=== PATIENT | female | born 1970 | race African-American/Black ===

== ENCOUNTER 2016-11-28 14:10 | Emergency (ER) | payer MEDICAID ==
[~2016-11-28] VITALS: Ht 167.6 cm; Wt 129.0 kg
[2016-11-28 18:39] VITALS: BP 110/78
[2016-11-28 18:48] LABS: CLARITY URINE TURBID (CLEAR); COLOR URINE DARK YELLOW (YELLOW); GLUCOSE URINE NEGATIVE (NEGATIVE); KETONES URINE NEGATIVE (NEGATIVE); LEUKOCYTE ESTERASE URINE 3+ (NEGATIVE); NITRITE URINE POSITIVE (NEGATIVE); OCCULT BLOOD URINE 2+ (NEGATIVE); PH URINE 5.5 (4.5-8.0); PROTEIN URINE 1+ (NEGATIVE); SPECIFIC GRAVITY URINE 1.018 (1.005-1.030)
== END 2016-11-28 19:17 | disposition home or self-care (01) ==
LOC: ER 15:04
DX: N39.0 Urinary tract infection, site not specified (principal); F41.9 Anxiety disorder, unspecified; J45.909 Unspecified asthma, uncomplicated; F17.200 Nicotine dependence, unspecified, uncomplicated; Z88.8 Allergy status to other drugs, medicaments and biological substances; Z88.1 Allergy status to other antibiotic agents
CPT/HCPCS: 81001; 99283

== ENCOUNTER 2017-01-08 16:00 | Emergency (ER) | payer MEDICAID ==
[~2017-01-08] VITALS: Ht 167.6 cm; Wt 100.0 kg
[2017-01-08 16:10] VITALS: BP 132/81
== END 2017-01-08 17:40 | disposition home or self-care (01) ==
LOC: ER 16:39
DX: L02.214 Cutaneous abscess of groin (principal); J45.909 Unspecified asthma, uncomplicated; Z88.6 Allergy status to analgesic agent; Z88.1 Allergy status to other antibiotic agents
CPT/HCPCS: 99283

== ENCOUNTER 2017-01-23 14:47 | Emergency (ER) | payer MEDICAID ==
[~2017-01-23] VITALS: Ht 167.6 cm; Wt 100.0 kg
[2017-01-23] MEDS ORDERED: ONDANSETRON HCL 4MG/2ML VIAL IV STA (18:25)
[2017-01-23] MEDS ORDERED: SODIUM CHLORIDE 0.9% 1,000 ML IV ONE (18:25)
[2017-01-23] MEDS ORDERED: MORPHINE SULFATE 4 MG/ML CPJ (NOT FOR IM USE) IV ONE (18:30)
[2017-01-23 18:53] LABS: BASOPHILS % 1.5 % (0.0-2.0); EOSINOPHILS % 0.1 % (0.0-5.0); HEMATOCRIT. 38.1 % (36.0-48.0); HEMOGLOBIN. 12.8 g/dL (12.0-16.0); LYMPHOCYTES % 16.1 % (20.0-50.0); MEAN CORPUSCULAR HEMOGLOBIN 30.3 pg (28.0-32.0); MEAN PLATELET VOLUME 7.5 fl (7.4-10.4); MONOCYTES % 4.5 % (2.0-8.0); NEUTROPHILS % 77.8 % (40.0-76.0); PLATELET 330 x1000/uL (130-400); RED BLOOD CELL COUNT 4.24 mill/uL (4.2-5.4); RED CELL DISTRIBUTION WIDTH 14.3 % (11.6-14.6)
[2017-01-23 18:55] LABS: CHLORIDE 106 mEq/L (98-107)
[2017-01-23 18:57] LABS: INR 1.1; PROTHROMBIN TIME 10.9 sec
[2017-01-23 19:00] LABS: CARBON DIOXIDE 29 mEq/L (21-32)
[2017-01-23 19:07] LABS: HCG SCREEN NEGATIVE
[2017-01-23 20:13] LABS: CLARITY URINE CLEAR (CLEAR); COLOR URINE YELLOW (YELLOW); GLUCOSE URINE NEGATIVE (NEGATIVE); KETONES URINE TRACE (NEGATIVE); LEUKOCYTE ESTERASE URINE 1+ (NEGATIVE); NITRITE URINE NEGATIVE (NEGATIVE); OCCULT BLOOD URINE 1+ (NEGATIVE); PROTEIN URINE NEGATIVE (NEGATIVE); SPECIFIC GRAVITY URINE 1.019 (1.005-1.030); UROBILINOGEN URINE 0.2 E.U./dL (0.2-1.0)
[2017-01-23] MEDS ORDERED: KETOROLAC 30MG/ML VIAL IV ONE (20:45)
[2017-01-24] MEDS ORDERED: MORPHINE SULFATE 10 MG/ML CPJ IM ONE (01:30)
[2017-01-24 02:02] VITALS: BP 119/57
== END 2017-01-24 02:30 | disposition home or self-care (01) ==
LOC: ER 18:28
DX: N39.0 Urinary tract infection, site not specified (principal); I10 Essential (primary) hypertension; J45.909 Unspecified asthma, uncomplicated; Z88.8 Allergy status to other drugs, medicaments and biological substances; Z88.6 Allergy status to analgesic agent; Z88.1 Allergy status to other antibiotic agents
CPT/HCPCS: 36415; 74176; 80053; 81001; 83690; 84484; 84703; 85025; 85610; 93005; 96361; 96372; 96374; 96375; 99285; J1885; J2270; J2405; J7030; Z7610

== ENCOUNTER 2017-03-14 09:42 | Emergency (ER) | payer MEDICAID ==
[~2017-03-14] VITALS: Ht 167.6 cm; Wt 107.0 kg
[2017-03-14] MEDS ORDERED: KETOROLAC 60MG/2ML VIAL IM ONE (13:00)
[2017-03-14 13:37] VITALS: BP 112/72
[2017-03-14 13:39] LABS: HCG SCREEN NEGATIVE
== END 2017-03-14 14:46 | disposition home or self-care (01) ==
LOC: ER 12:50
DX: H60.91 Unspecified otitis externa, right ear (principal); J45.909 Unspecified asthma, uncomplicated; Z88.1 Allergy status to other antibiotic agents; Z88.6 Allergy status to analgesic agent; Z88.2 Allergy status to sulfonamides; Z88.5 Allergy status to narcotic agent; Z88.8 Allergy status to other drugs, medicaments and biological substances
CPT/HCPCS: 84703; 96372; 99283; J1885; Z7610

== ENCOUNTER 2017-08-09 18:06 | Emergency (ER) | payer MEDICAID ==
[~2017-08-09] VITALS: Ht 167.6 cm; Wt 111.8 kg
[2017-08-09] MEDS ORDERED: METHYLPREDNISOLONE SOD SUCC 125 MG/2 ML VIAL IM ONE (20:15)
[2017-08-09] MEDS ORDERED: ALBUTEROL (0.083%) 2.5MG/3ML NEB HHN ONE (20:15)
[2017-08-10 00:05] VITALS: BP 117/57
== END 2017-08-10 01:30 | disposition home or self-care (01) ==
LOC: ER 19:11
DX: J45.901 Unspecified asthma with (acute) exacerbation (principal); M54.30 Sciatica, unspecified side; F17.200 Nicotine dependence, unspecified, uncomplicated; F12.10 Cannabis abuse, uncomplicated; Z88.6 Allergy status to analgesic agent; Z88.3 Allergy status to other anti-infective agents; Z88.2 Allergy status to sulfonamides
CPT/HCPCS: 70360; 71046; 93005; 94640; 99284; J7611

== ENCOUNTER 2018-06-18 20:55 | Inpatient (IN) | payer MEDICAID ==
[~2018-06-18] VITALS: Ht 170.2 cm; Wt 119.3 kg
[2018-06-18] MEDS ORDERED: ACETAMINOPHEN 325MG TABLET PO STA (21:23)
[2018-06-18] MEDS ORDERED: SODIUM CHLORIDE 0.9% 1000ML BAG (SEPSIS BOLUS) IV ONE (21:30)
[2018-06-18] MEDS ORDERED: ALBUTEROL (0.083%) 2.5MG/3ML NEB HHN ONE (21:30)
[2018-06-18 21:51] LABS: BASOPHILS % 0.7 % (0.0-2.0); HEMOGLOBIN. 13.1 g/dL (12.0-16.0); LYMPHOCYTES % 16.3 % (20.0-50.0); MEAN CORPUSCULAR HEMOGLOBIN 30.3 pg (28.0-32.0); MEAN CORPUSCULAR VOLUME 88.2 fL (81.0-99.0); MEAN PLATELET VOLUME 7.8 fl (7.4-10.4); MONOCYTES % 11.5 % (2.0-8.0); NEUTROPHILS % 71.5 % (40.0-76.0); PLATELET 229 x1000/uL (130-400); RED BLOOD CELL COUNT 4.31 mill/uL (4.2-5.4); RED CELL DISTRIBUTION WIDTH 13.5 % (11.6-14.6)
[2018-06-18 22:11] LABS: CHLORIDE 99 mEq/L (98-107)
[2018-06-18] MEDS ORDERED: METHYLPREDNISOLONE SOD SUCC 125 MG/2 ML VIAL IV ONE (23:15)
[2018-06-18] MEDS ORDERED: CLONIDINE 0.1MG TABLET PO PRN (23:15)
[2018-06-18] MEDS ORDERED: HYDROMORPHONE HCL/PF 2MG/ML CPJ IV PRN (23:15)
[2018-06-18] MEDS ORDERED: ENOXAPARIN 40MG/0.4ML SYR SUBCUT SCH (23:15)
[2018-06-18] MEDS ORDERED: AZITHROMYCIN 500 MG in DEXT 5% WATER 250 ML IV SCH (23:15)
[2018-06-18] MEDS ORDERED: CEFTRIAXONE 1 G PREMIX 50 ML IV ONE (23:15)
[2018-06-18] MEDS ORDERED: POTASSIUM CHLORIDE 20MEQ TABLET SR PO ONE ×2 (23:30)
[2018-06-19 00:02] LABS: CLARITY URINE TURBID (CLEAR); COLOR URINE YELLOW (YELLOW); KETONES URINE NEGATIVE (NEGATIVE); LEUKOCYTE ESTERASE URINE 3+ (NEGATIVE); NITRITE URINE POSITIVE (NEGATIVE); OCCULT BLOOD URINE 1+ (NEGATIVE); PROTEIN URINE 1+ (NEGATIVE)
[2018-06-19 00:15] LABS: *AMPHETAMINES SCREEN URINE NEGATIVE (NEGATIVE)
[2018-06-19 00:16] LABS: *BARBITURATES SCREEN URINE NEGATIVE (NEGATIVE); *BENZODIAZEPINES SCREEN URINE NEGATIVE (NEGATIVE); *COCAINE SCREEN URINE NEGATIVE (NEGATIVE); METHADONE URINE SCREEN NEGATIVE (NEGATIVE); OPIATES URINE SCREEN NEGATIVE (NEGATIVE)
[2018-06-19 00:17] LABS: PHENCYCLIDINE URINE SCREEN NEGATIVE (NEGATIVE)
[2018-06-19 00:21] LABS: CANNABINOID URINE SCREEN PRESUMTIVE POSITIVE (NEGATIVE)
[2018-06-19] MEDS ORDERED: SODIUM CHLORIDE 0.9% 1,000 ML IV SCH (00:34)
[2018-06-19] MEDS ORDERED: POTASSIUM CHLORIDE 20MEQ TABLET SR PO SCH (00:47)
[2018-06-19] MEDS ORDERED: ALBU05 NEB (00:56)
[2018-06-19] MEDS ORDERED: CYCL10TA7 PO (00:56)
[2018-06-19] MEDS ORDERED: GABA800T97 PO (00:56)
[2018-06-19 01:10] VITALS: BP 125/75
[2018-06-19] MEDS ORDERED: LEVOFLOXACIN 500MG PREMIX 100 ML IV SCH (02:00)
[2018-06-19 04:00] VITALS: BP 131/82
[2018-06-19] MEDS: DIPHENOXYLATE/ATROPINE 2.5/0.025MG TABLET PO PRN ×2 (06:41→15:22)
[2018-06-19 06:43] LABS: BASOPHILS % 0.4 % (0.0-2.0); HEMATOCRIT. 37.8 % (36.0-48.0); HEMOGLOBIN. 12.9 g/dL (12.0-16.0); MEAN CORPUSCULAR HEMOGLOBIN 30.7 pg (28.0-32.0); MEAN CORPUSCULAR VOLUME 89.9 fL (81.0-99.0); MEAN PLATELET VOLUME 8.2 fl (7.4-10.4); MONOCYTES % 3.1 % (2.0-8.0); NEUTROPHILS % 85.5 % (40.0-76.0); PLATELET 237 x1000/uL (130-400); RED BLOOD CELL COUNT 4.21 mill/uL (4.2-5.4); RED CELL DISTRIBUTION WIDTH 13.6 % (11.6-14.6)
[2018-06-19] MEDS: ACETAMINOPHEN 325MG TABLET PO PRN ×2 (07:03→20:47)
[2018-06-19 07:07] LABS: CHLORIDE 104 mEq/L (98-107)
[2018-06-19 07:19] LABS: PHOSPHORUS 2.1 mg/dL (2.5-4.9)
[2018-06-19 08:00] VITALS: BP 151/84
[2018-06-19] MEDS: METHYLPREDNISOLONE SOD SUCC 40 MG/ML VIAL IV SCH ×2 (09:11→16:49)
[2018-06-19] MEDS: METRONIDAZOLE 500 MG PREMIX 100 ML IV SCH ×2 (09:12→15:23)
[2018-06-19] MEDS: ENOXAPARIN 30MG/0.3ML SYR SUBCUT SCH ×2 (09:12→20:46)
[2018-06-19] MEDS: POTASSIUM CHLORIDE 20MEQ TABLET SR PO SCH ×2 (09:12→16:49)
[2018-06-19 12:00] VITALS: BP 130/67
[2018-06-19] MEDS ORDERED: NAPR375T5 PO (13:52)
[2018-06-19] MEDS ORDERED: METH500T6 MT (13:52)
[2018-06-19] MEDS ORDERED: TIZA4CAP6 MT (13:58)
[2018-06-19] MEDS ORDERED: MOME13HF2 INH (13:58)
[2018-06-19] MEDS ORDERED: MONT10TA24 MT (13:58)
[2018-06-19] MEDS ORDERED: GABA800T97 MT (14:05)
[2018-06-19 16:00] VITALS: BP 133/81
[2018-06-19] MEDS: IPRATROPIUM/ALBUTEROL 0.5-3(2.5)MG/3ML NEB HHN PRN (17:19)
[2018-06-19] MEDS ORDERED: ALBUTEROL (0.5%) 2.5MG/0.5ML NEB HHN SCH (19:45)
[2018-06-19 20:00] VITALS: BP 114/61
[2018-06-19] MEDS: LORAZEPAM 2MG/ML CPJ IV PRN (20:47)
[2018-06-19] MEDS: ONDANSETRON HCL 4MG/2ML INJ IV PRN (20:47)
[2018-06-20 00:07] VITALS: BP 127/83
[2018-06-20] MEDS: METHYLPREDNISOLONE SOD SUCC 40 MG/ML VIAL IV SCH ×2 (00:10→07:50)
[2018-06-20] MEDS: METRONIDAZOLE 500 MG PREMIX 100 ML IV SCH ×4 (00:10→23:56)
[2018-06-20] MEDS: LEVOFLOXACIN 500MG PREMIX 100 ML IV SCH (01:17)
[2018-06-20] MEDS: LORAZEPAM 2MG/ML CPJ IV PRN ×2 (01:17→07:51)
[2018-06-20] MEDS: IPRATROPIUM/ALBUTEROL 0.5-3(2.5)MG/3ML NEB HHN PRN (05:20)
[2018-06-20 07:17] LABS: CHLORIDE 104 mEq/L (98-107)
[2018-06-20 07:19] LABS: BASOPHILS % 0.3 % (0.0-2.0); HEMATOCRIT. 38.7 % (36.0-48.0); HEMOGLOBIN. 13.2 g/dL (12.0-16.0); LYMPHOCYTES % 11.3 % (20.0-50.0); MEAN CORPUSCULAR HEMOGLOBIN 30.5 pg (28.0-32.0); MEAN CORPUSCULAR VOLUME 89.4 fL (81.0-99.0); MEAN PLATELET VOLUME 8.1 fl (7.4-10.4); MONOCYTES % 5.7 % (2.0-8.0); NEUTROPHILS % 82.7 % (40.0-76.0); PLATELET 240 x1000/uL (130-400); RED BLOOD CELL COUNT 4.32 mill/uL (4.2-5.4); RED CELL DISTRIBUTION WIDTH 13.7 % (11.6-14.6)
[2018-06-20 07:36] LABS: PHOSPHORUS 1.5 mg/dL (2.5-4.9)
[2018-06-20] MEDS: ENOXAPARIN 30MG/0.3ML SYR SUBCUT SCH ×2 (07:52→21:57)
[2018-06-20] MEDS: POTASSIUM CHLORIDE 20MEQ TABLET SR PO SCH ×2 (07:52→17:00)
[2018-06-20 08:00] VITALS: BP 131/78
[2018-06-20] MEDS: IPRATROPIUM/ALBUTEROL 0.5-3(2.5)MG/3ML NEB HHN SCH ×4 (10:19→23:57)
[2018-06-20] MEDS ORDERED: SODIUM PHOS,M-BASIC-D-BASIC 30 MM in DEXT 5% WATER 500 ML IV NR (10:30)
[2018-06-20 12:00] VITALS: BP 103/64
[2018-06-20 16:00] VITALS: BP 110/76
[2018-06-20] MEDS: MONTELUKAST SODIUM 10MG TABLET PO SCH (17:50)
[2018-06-20] MEDS: METHYLPREDNISOLONE SOD SUCC 125 MG/2 ML VIAL IV SCH ×2 (17:50→23:56)
[2018-06-20] MEDS ORDERED: MONTELUKAST SODIUM 10MG TABLET PO SCH (18:00)
[2018-06-20] MEDS: ACETAMINOPHEN 325MG TABLET PO PRN (19:58)
[2018-06-20 20:00] VITALS: BP 122/68
[2018-06-21] VITALS (9 sets, daily range): BP systolic 114–137; BP diastolic 60–94
[2018-06-21] MEDS: ZOLPIDEM TARTRATE 5MG TABLET PO PRN ×2 (01:19→22:41)
[2018-06-21] MEDS: LEVOFLOXACIN 500MG PREMIX 100 ML IV SCH (01:19)
[2018-06-21] MEDS: IPRATROPIUM/ALBUTEROL 0.5-3(2.5)MG/3ML NEB HHN SCH ×5 (04:02→21:38)
[2018-06-21 05:43] LABS: BASOPHILS % 0.4 % (0.0-2.0); HEMOGLOBIN. 13.4 g/dL (12.0-16.0); MEAN CORPUSCULAR HEMOGLOBIN 30.6 pg (28.0-32.0); MEAN CORPUSCULAR VOLUME 89.2 fL (81.0-99.0); MEAN PLATELET VOLUME 8.4 fl (7.4-10.4); MONOCYTES % 6.6 % (2.0-8.0); PLATELET 243 x1000/uL (130-400); RED BLOOD CELL COUNT 4.37 mill/uL (4.2-5.4); RED CELL DISTRIBUTION WIDTH 13.8 % (11.6-14.6)
[2018-06-21 06:05] LABS: CHLORIDE 99 mEq/L (98-107)
[2018-06-21] MEDS: METRONIDAZOLE 500 MG PREMIX 100 ML IV SCH ×3 (08:06→23:26)
[2018-06-21] MEDS: METHYLPREDNISOLONE SOD SUCC 125 MG/2 ML VIAL IV SCH ×3 (08:06→23:26)
[2018-06-21] MEDS: ACETAMINOPHEN 325MG TABLET PO PRN ×2 (08:07→20:58)
[2018-06-21] MEDS: POTASSIUM CHLORIDE 20MEQ TABLET SR PO SCH ×2 (08:07→16:46)
[2018-06-21] MEDS: ENOXAPARIN 30MG/0.3ML SYR SUBCUT SCH ×2 (08:08→21:05)
[2018-06-21] MEDS ORDERED: THROAT LOZENGES-BENZOCAINE/MENTH/CETYLPYRD CL LOZENGES MM PRN (10:45)
[2018-06-21] MEDS ORDERED: IOHEXOL-350 100 ML BOTTLE ONE (15:11)
[2018-06-21] MEDS: MONTELUKAST SODIUM 10MG TABLET PO SCH (16:46)
[2018-06-21] MEDS: ONDANSETRON HCL 4MG/2ML INJ IV PRN (21:05)
[2018-06-22] VITALS: BP 112/54
[2018-06-22] MEDS: LEVOFLOXACIN 500MG PREMIX 100 ML IV SCH (01:21)
[2018-06-22] MEDS: IPRATROPIUM/ALBUTEROL 0.5-3(2.5)MG/3ML NEB HHN SCH ×6 (01:43→22:13)
[2018-06-22 04:00] VITALS: BP 119/73
[2018-06-22] MEDS ORDERED: ENOXAPARIN 30MG/0.3ML SYR SUBCUT SCH (06:00)
[2018-06-22 06:29] LABS: BASOPHILS % 0.1 % (0.0-2.0); HEMOGLOBIN. 13.6 g/dL (12.0-16.0); LYMPHOCYTES % 11.2 % (20.0-50.0); MEAN CORPUSCULAR HEMOGLOBIN 30.4 pg (28.0-32.0); MEAN CORPUSCULAR VOLUME 89.3 fL (81.0-99.0); MEAN PLATELET VOLUME 8.3 fl (7.4-10.4); MONOCYTES % 4.4 % (2.0-8.0); NEUTROPHILS % 84.3 % (40.0-76.0); PLATELET 235 x1000/uL (130-400); RED BLOOD CELL COUNT 4.49 mill/uL (4.2-5.4); RED CELL DISTRIBUTION WIDTH 13.7 % (11.6-14.6)
[2018-06-22 06:45] LABS: CHLORIDE 99 mEq/L (98-107)
[2018-06-22 06:51] LABS: PHOSPHORUS 2.1 mg/dL (2.5-4.9)
[2018-06-22 06:54] LABS: CREATINE KINASE 684 IU/L (26-192)
[2018-06-22] MEDS: METRONIDAZOLE 500 MG PREMIX 100 ML IV SCH ×3 (08:14→23:14)
[2018-06-22 08:15] VITALS: BP 128/66
[2018-06-22] MEDS: ACETAMINOPHEN 325MG TABLET PO PRN ×2 (08:18→17:40)
[2018-06-22] MEDS: POTASSIUM CHLORIDE 20MEQ TABLET SR PO SCH ×2 (08:18→16:34)
[2018-06-22] MEDS: ENOXAPARIN 30MG/0.3ML SYR SUBCUT SCH ×2 (08:19→20:42)
[2018-06-22] MEDS: METHYLPREDNISOLONE SOD SUCC 125 MG/2 ML VIAL IV SCH ×3 (08:19→23:14)
[2018-06-22 11:21] LABS: BG BASE EXCESS 0.8 mmol/L (-2.0-2.0); BG CARBOXYHEMOGLOBIN 0.6 % (0.5-1.5); BG DEOXYHEMOGLOBIN 7.1 % (0.0-5.0); BG FRACTION INSPIRED OXYGEN 26; BG HCO3 ACT 23.5 mmol/L (22.0-26.0); BG METHEMOGLOBIN 0.3 % (0.0-1.5); BG OXYGEN SATURATION 92.8 % (92.0-98.5); BG PCO2 32.1 mmHg (35.0-45.0); BG PH 7.483 (7.350-7.450); BG PO2 60.8 mmHg (75.0-100.0); BG SAMPLE SITE LEFT RADIAL; BG TOTAL HEMOGLOBIN 14.2 g/dL (12.0-18.0); BG VENT MODE NASAL CANNULA
[2018-06-22 12:00] VITALS: BP 123/77
[2018-06-22 16:00] VITALS: BP 116/61
[2018-06-22] MEDS: MONTELUKAST SODIUM 10MG TABLET PO SCH (16:34)
[2018-06-22] MEDS: ONDANSETRON HCL 4MG/2ML INJ IV PRN (16:37)
[2018-06-22] MEDS: METHOCARBAMOL 500MG TABLET PO PRN (17:43)
[2018-06-22 20:00] VITALS: BP 130/75
[2018-06-22] MEDS: LORAZEPAM 2MG/ML CPJ IV PRN (23:14)
[2018-06-23 00:11] VITALS: BP 114/63
[2018-06-23] MEDS: IPRATROPIUM/ALBUTEROL 0.5-3(2.5)MG/3ML NEB HHN SCH ×6 (01:00→20:38)
[2018-06-23] MEDS: ZOLPIDEM TARTRATE 5MG TABLET PO PRN (01:16)
[2018-06-23] MEDS: LEVOFLOXACIN 500MG PREMIX 100 ML IV SCH (01:16)
[2018-06-23] MEDS: ONDANSETRON HCL 4MG/2ML INJ IV PRN ×2 (01:28→18:25)
[2018-06-23 04:00] VITALS: BP 136/56
[2018-06-23 08:00] VITALS: BP 126/64
[2018-06-23 08:40] LABS: BG BASE EXCESS 2.6 mmol/L (-2.0-2.0); BG CARBOXYHEMOGLOBIN 0.4 % (0.5-1.5); BG DEOXYHEMOGLOBIN 10.5 % (0.0-5.0); BG FRACTION INSPIRED OXYGEN 28; BG METHEMOGLOBIN 0.3 % (0.0-1.5); BG OXYGEN SATURATION 89.4 % (92.0-98.5); BG OXYHEMOGLOBIN 88.8 % (94.0-97.0); BG PCO2 36.4 mmHg (35.0-45.0); BG PH 7.472 (7.350-7.450); BG PO2 54.2 mmHg (75.0-100.0); BG SAMPLE SITE LEFT BRACHIAL; BG VENT MODE NASAL CANNULA
[2018-06-23] MEDS: POTASSIUM CHLORIDE 20MEQ TABLET SR PO SCH ×2 (09:00→17:00)
[2018-06-23] MEDS: METRONIDAZOLE 500 MG PREMIX 100 ML IV SCH ×3 (09:01→23:57)
[2018-06-23] MEDS: METHYLPREDNISOLONE SOD SUCC 125 MG/2 ML VIAL IV SCH ×3 (09:01→23:57)
[2018-06-23] MEDS: ENOXAPARIN 30MG/0.3ML SYR SUBCUT SCH ×2 (09:01→20:58)
[2018-06-23 12:00] VITALS: BP_SYST 107; BP_SYST 126; BP_DIAS 69; BP_DIAS 76
[2018-06-23 16:00] VITALS: BP 136/78
[2018-06-23] MEDS ORDERED: ZOLPIDEM TARTRATE 5MG TABLET PO PRN (18:15)
[2018-06-23] MEDS: MONTELUKAST SODIUM 10MG TABLET PO SCH (18:25)
[2018-06-23] MEDS: LORATADINE 10MG TABLET PO SCH (18:25)
[2018-06-23 20:00] VITALS: BP 112/57
[2018-06-23] MEDS: FAMOTIDINE 20MG/2ML VIAL IV SCH (20:57)
[2018-06-23] MEDS: GUAIFENESIN 600MG ER TABLET PO SCH (20:57)
[2018-06-23] MEDS: CEFTRIAXONE 1 G PREMIX 50 ML IV SCH (20:58)
[2018-06-24] VITALS: BP 123/88
[2018-06-24] MEDS: IPRATROPIUM/ALBUTEROL 0.5-3(2.5)MG/3ML NEB HHN SCH ×6 (00:45→21:16)
[2018-06-24] MEDS: ACETAMINOPHEN 325MG TABLET PO PRN ×3 (00:53→23:19)
[2018-06-24] MEDS: LEVOFLOXACIN 500MG PREMIX 100 ML IV SCH (01:52)
[2018-06-24] MEDS: ZOLPIDEM TARTRATE 5MG TABLET PO PRN ×2 (01:52→22:25)
[2018-06-24 06:00] VITALS: BP 115/60
[2018-06-24 08:00] VITALS: BP 119/68
[2018-06-24] MEDS: FAMOTIDINE 20MG/2ML VIAL IV SCH ×2 (08:39→22:26)
[2018-06-24] MEDS: POTASSIUM CHLORIDE 20MEQ TABLET SR PO SCH ×2 (08:40→17:30)
[2018-06-24] MEDS: LORATADINE 10MG TABLET PO SCH (08:40)
[2018-06-24] MEDS: METHYLPREDNISOLONE SOD SUCC 125 MG/2 ML VIAL IV SCH ×2 (08:40→17:31)
[2018-06-24] MEDS: GUAIFENESIN 600MG ER TABLET PO SCH ×2 (08:40→22:25)
[2018-06-24] MEDS: ENOXAPARIN 30MG/0.3ML SYR SUBCUT SCH ×2 (08:41→22:26)
[2018-06-24] MEDS: METRONIDAZOLE 500 MG PREMIX 100 ML IV SCH ×2 (08:49→17:31)
[2018-06-24 11:28] LABS: HEMATOCRIT. 41.1 % (36.0-48.0); HEMOGLOBIN. 13.9 g/dL (12.0-16.0); MEAN CORPUSCULAR HEMOGLOBIN 30.4 pg (28.0-32.0); MEAN CORPUSCULAR VOLUME 89.8 fL (81.0-99.0); MEAN PLATELET VOLUME 8.1 fl (7.4-10.4); PLATELET 310 x1000/uL (130-400); RED BLOOD CELL COUNT 4.57 mill/uL (4.2-5.4); RED CELL DISTRIBUTION WIDTH 13.8 % (11.6-14.6)
[2018-06-24 12:00] VITALS: BP 121/72
[2018-06-24 12:08] LABS: CHLORIDE 100 mEq/L (98-107)
[2018-06-24] MEDS: FUROSEMIDE 20MG/2ML VIAL IVP SCH (12:21)
[2018-06-24] MEDS: METHOCARBAMOL 500MG TABLET PO PRN (13:37)
[2018-06-24 16:00] VITALS: BP 114/64
[2018-06-24] MEDS: MONTELUKAST SODIUM 10MG TABLET PO SCH (17:30)
[2018-06-24 17:36] LABS: PLATELET ESTIMATE NORMAL
[2018-06-24 20:00] VITALS: BP 126/75
[2018-06-24] MEDS: CEFTRIAXONE 1 G PREMIX 50 ML IV SCH (22:25)
[2018-06-25] VITALS: BP 133/72
[2018-06-25] MEDS: ACETYLCYSTEINE 100MG/ML 10% VIAL 4ML INH SCH (00:45)
[2018-06-25] MEDS: IPRATROPIUM/ALBUTEROL 0.5-3(2.5)MG/3ML NEB HHN SCH ×6 (01:02→21:00)
[2018-06-25] MEDS: METHYLPREDNISOLONE SOD SUCC 125 MG/2 ML VIAL IV SCH ×2 (01:24→09:49)
[2018-06-25] MEDS: METHOCARBAMOL 500MG TABLET PO PRN (01:24)
[2018-06-25] MEDS: METRONIDAZOLE 500 MG PREMIX 100 ML IV SCH ×4 (01:25→23:38)
[2018-06-25] MEDS: LEVOFLOXACIN 500MG PREMIX 100 ML IV SCH (02:40)
[2018-06-25 04:00] VITALS: BP 138/80
[2018-06-25 04:17] LABS: MYCOPLASMA PNEUMONIAE IGG 773 U/mL (0-99); MYCOPLASMA PNEUMONIAE IGM < 770 U/mL (0-769)
[2018-06-25 08:03] VITALS: BP 122/71
[2018-06-25 08:47] LABS: CHLORIDE 101 mEq/L (98-107)
[2018-06-25 08:53] LABS: HEMATOCRIT. 41.9 % (36.0-48.0); HEMOGLOBIN. 14.2 g/dL (12.0-16.0); MEAN CORPUSCULAR HEMOGLOBIN 30.3 pg (28.0-32.0); MEAN CORPUSCULAR VOLUME 89.4 fL (81.0-99.0); MEAN PLATELET VOLUME 8.2 fl (7.4-10.4); PLATELET 379 x1000/uL (130-400); RED BLOOD CELL COUNT 4.68 mill/uL (4.2-5.4); RED CELL DISTRIBUTION WIDTH 13.7 % (11.6-14.6)
[2018-06-25 08:58] LABS: CREATINE KINASE 302 IU/L (26-192)
[2018-06-25] MEDS: GUAIFENESIN 600MG ER TABLET PO SCH ×2 (09:44→21:04)
[2018-06-25] MEDS: LORATADINE 10MG TABLET PO SCH (09:44)
[2018-06-25] MEDS: FAMOTIDINE 20MG/2ML VIAL IV SCH ×2 (09:45→21:04)
[2018-06-25] MEDS: FUROSEMIDE 20MG/2ML VIAL IVP SCH (09:45)
[2018-06-25] MEDS: ENOXAPARIN 30MG/0.3ML SYR SUBCUT SCH ×2 (09:49→21:05)
[2018-06-25] MEDS: POTASSIUM CHLORIDE 20MEQ TABLET SR PO SCH ×2 (09:50→17:00)
[2018-06-25 10:46] LABS: NUCLEATED RED BLOOD CELLS 1 /100 WBC; PLATELET ESTIMATE NORMAL
[2018-06-25 12:15] VITALS: BP 133/74
[2018-06-25] MEDS: ALPRAZOLAM 0.5 MG TABLET PO PRN (13:44)
[2018-06-25] MEDS ORDERED: IPRATROPIUM/ALBUTEROL 0.5-3(2.5)MG/3ML NEB HHN PRN (15:15)
[2018-06-25] MEDS ORDERED: IPRATROPIUM/ALBUTEROL 0.5-3(2.5)MG/3ML NEB HHN SCH (16:00)
[2018-06-25 16:03] VITALS: BP 107/64
[2018-06-25] MEDS: MONTELUKAST SODIUM 10MG TABLET PO SCH (17:17)
[2018-06-25] MEDS: PREDNISONE 20MG TABLET PO SCH (17:18)
[2018-06-25 20:00] VITALS: BP 122/78
[2018-06-25] MEDS: CEFTRIAXONE 1 G PREMIX 50 ML IV SCH (21:05)
[2018-06-25] MEDS: ZOLPIDEM TARTRATE 5MG TABLET PO PRN (22:01)
[2018-06-26] VITALS (8 sets, daily range): BP systolic 89–130; BP diastolic 53–87
[2018-06-26] MEDS: ACETYLCYSTEINE 100MG/ML 10% VIAL 4ML INH SCH ×3 (00:45→16:12)
[2018-06-26] MEDS: IPRATROPIUM/ALBUTEROL 0.5-3(2.5)MG/3ML NEB HHN SCH ×6 (00:45→20:57)
[2018-06-26 07:23] LABS: HEMATOCRIT. 44.9 % (36.0-48.0); HEMOGLOBIN. 14.9 g/dL (12.0-16.0); MEAN CORPUSCULAR VOLUME 90.5 fL (81.0-99.0); MEAN PLATELET VOLUME 7.9 fl (7.4-10.4); PLATELET 446 x1000/uL (130-400); RED BLOOD CELL COUNT 4.96 mill/uL (4.2-5.4); RED CELL DISTRIBUTION WIDTH 14.1 % (11.6-14.6)
[2018-06-26 08:14] LABS: BG BASE EXCESS -1.6 mmol/L (-2.0-2.0); BG CARBOXYHEMOGLOBIN 0.6 % (0.5-1.5); BG HCO3 ACT 21.1 mmol/L (22.0-26.0); BG METHEMOGLOBIN 0.5 % (0.0-1.5); BG OXYGEN SATURATION 93.9 % (92.0-98.5); BG OXYHEMOGLOBIN 92.9 % (94.0-97.0); BG PCO2 30.6 mmHg (35.0-45.0); BG PH 7.456 (7.350-7.450); BG PO2 68.3 mmHg (75.0-100.0); BG SAMPLE SITE RIGHT RADIAL; BG VENT MODE NASAL CANNULA
[2018-06-26 08:15] LABS: CHLORIDE 100 mEq/L (98-107)
[2018-06-26] MEDS: FUROSEMIDE 20MG/2ML VIAL IVP SCH (08:50)
[2018-06-26] MEDS: POTASSIUM CHLORIDE 20MEQ TABLET SR PO SCH ×2 (08:50→17:28)
[2018-06-26] MEDS: LORATADINE 10MG TABLET PO SCH (08:50)
[2018-06-26] MEDS: GUAIFENESIN 600MG ER TABLET PO SCH ×2 (08:50→20:48)
[2018-06-26] MEDS: PREDNISONE 20MG TABLET PO SCH (08:50)
[2018-06-26] MEDS: FAMOTIDINE 20MG/2ML VIAL IV SCH ×2 (08:50→20:48)
[2018-06-26] MEDS: ENOXAPARIN 30MG/0.3ML SYR SUBCUT SCH ×2 (08:51→20:51)
[2018-06-26] MEDS: METRONIDAZOLE 500 MG PREMIX 100 ML IV SCH (08:51)
[2018-06-26 14:07] LABS: PLATELET ESTIMATE INCREASED
[2018-06-26] MEDS ORDERED: SODIUM CHLORIDE 10% FOR INH 15ML VIAL NEB INH SCH (14:15)
[2018-06-26] MEDS: METHYLPREDNISOLONE SOD SUCC 40 MG/ML VIAL IV SCH ×2 (15:14→21:15)
[2018-06-26] MEDS: MONTELUKAST SODIUM 10MG TABLET PO SCH (17:28)
[2018-06-26] MEDS: ACETAMINOPHEN 325MG TABLET PO PRN (17:28)
[2018-06-26] MEDS: ALPRAZOLAM 0.5 MG TABLET PO PRN (17:28)
[2018-06-26] MEDS: CEFTRIAXONE 1 G PREMIX 50 ML IV SCH (20:49)
[2018-06-26 22:20] LABS: CREATINE KINASE 174 IU/L (26-192)
[2018-06-27] VITALS (11 sets, daily range): BP systolic 112–153; BP diastolic 56–87
[2018-06-27] MEDS: IPRATROPIUM/ALBUTEROL 0.5-3(2.5)MG/3ML NEB HHN SCH ×7 (00:16→23:44)
[2018-06-27] MEDS: ACETYLCYSTEINE 100MG/ML 10% VIAL 4ML INH SCH ×3 (00:17→23:44)
[2018-06-27] MEDS: METHOCARBAMOL 500MG TABLET PO PRN (02:28)
[2018-06-27] MEDS: ACETAMINOPHEN 325MG TABLET PO PRN (02:44)
[2018-06-27] MEDS: ALPRAZOLAM 0.5 MG TABLET PO PRN (02:58)
[2018-06-27 06:06] LABS: BASOPHILS % 0.4 % (0.0-2.0); HEMATOCRIT. 41.1 % (36.0-48.0); HEMOGLOBIN. 13.7 g/dL (12.0-16.0); LYMPHOCYTES % 10.1 % (20.0-50.0); MEAN CORPUSCULAR HEMOGLOBIN 30.1 pg (28.0-32.0); MEAN CORPUSCULAR VOLUME 89.9 fL (81.0-99.0); MEAN PLATELET VOLUME 7.5 fl (7.4-10.4); MONOCYTES % 7.8 % (2.0-8.0); NEUTROPHILS % 81.7 % (40.0-76.0); PLATELET 433 x1000/uL (130-400); RED BLOOD CELL COUNT 4.57 mill/uL (4.2-5.4); RED CELL DISTRIBUTION WIDTH 13.8 % (11.6-14.6)
[2018-06-27 06:47] LABS: CHLORIDE 103 mEq/L (98-107)
[2018-06-27] MEDS: METHYLPREDNISOLONE SOD SUCC 40 MG/ML VIAL IV SCH ×3 (07:05→22:37)
[2018-06-27] MEDS: LORATADINE 10MG TABLET PO SCH (09:32)
[2018-06-27] MEDS: FAMOTIDINE 20MG/2ML VIAL IV SCH ×2 (09:32→22:37)
[2018-06-27] MEDS: ENOXAPARIN 30MG/0.3ML SYR SUBCUT SCH ×2 (09:32→22:37)
[2018-06-27] MEDS: GUAIFENESIN 600MG ER TABLET PO SCH ×2 (09:32→22:37)
[2018-06-27] MEDS: POTASSIUM CHLORIDE 20MEQ TABLET SR PO SCH ×2 (09:33→18:23)
[2018-06-27] MEDS: FUROSEMIDE 40MG/4ML VIAL IVP SCH (09:33)
[2018-06-27] MEDS: MONTELUKAST SODIUM 10MG TABLET PO SCH (18:23)
[2018-06-27] MEDS: CEFTRIAXONE 1 G PREMIX 50 ML IV SCH (22:37)
[2018-06-27] MEDS: ZOLPIDEM TARTRATE 5MG TABLET PO PRN (22:51)
[2018-06-28] VITALS (12 sets, daily range): BP systolic 122–151; BP diastolic 68–104
[2018-06-28] MEDS: IPRATROPIUM/ALBUTEROL 0.5-3(2.5)MG/3ML NEB HHN SCH ×5 (04:05→20:55)
[2018-06-28] MEDS: METHYLPREDNISOLONE SOD SUCC 40 MG/ML VIAL IV SCH ×3 (05:44→20:56)
[2018-06-28] MEDS: ACETYLCYSTEINE 100MG/ML 10% VIAL 4ML INH SCH ×2 (07:51→15:14)
[2018-06-28] MEDS: FUROSEMIDE 40MG/4ML VIAL IVP SCH (08:39)
[2018-06-28] MEDS: FAMOTIDINE 20MG/2ML VIAL IV SCH ×2 (08:39→20:52)
[2018-06-28] MEDS: LORATADINE 10MG TABLET PO SCH (08:40)
[2018-06-28] MEDS: POTASSIUM CHLORIDE 20MEQ TABLET SR PO SCH ×2 (08:40→16:32)
[2018-06-28] MEDS: GUAIFENESIN 600MG ER TABLET PO SCH ×2 (08:40→20:52)
[2018-06-28] MEDS: ENOXAPARIN 30MG/0.3ML SYR SUBCUT SCH ×2 (08:41→20:53)
[2018-06-28] MEDS: ALPRAZOLAM 0.5 MG TABLET PO PRN ×2 (10:21→23:00)
[2018-06-28] MEDS: ACETAMINOPHEN 325MG TABLET PO PRN ×3 (10:21→22:57)
[2018-06-28] MEDS: MONTELUKAST SODIUM 10MG TABLET PO SCH (16:33)
[2018-06-28] MEDS: ZOLPIDEM TARTRATE 5MG TABLET PO PRN (22:56)
[2018-06-29] VITALS (10 sets, daily range): BP systolic 81–182; BP diastolic 56–97
[2018-06-29] MEDS: IPRATROPIUM/ALBUTEROL 0.5-3(2.5)MG/3ML NEB HHN SCH ×5 (00:44→16:42)
[2018-06-29] MEDS: ACETYLCYSTEINE 100MG/ML 10% VIAL 4ML INH SCH ×2 (00:44→08:00)
[2018-06-29] MEDS: METHYLPREDNISOLONE SOD SUCC 40 MG/ML VIAL IV SCH ×2 (06:08→15:34)
[2018-06-29] MEDS: FAMOTIDINE 20MG/2ML VIAL IV SCH (09:02)
[2018-06-29] MEDS: LORATADINE 10MG TABLET PO SCH (09:02)
[2018-06-29] MEDS: POTASSIUM CHLORIDE 20MEQ TABLET SR PO SCH (09:02)
[2018-06-29] MEDS: ENOXAPARIN 30MG/0.3ML SYR SUBCUT SCH (09:03)
[2018-06-29] MEDS: GUAIFENESIN 600MG ER TABLET PO SCH (09:03)
[2018-06-29] MEDS: FUROSEMIDE 40MG/4ML VIAL IVP SCH (09:03)
[2018-06-29] MEDS: ALPRAZOLAM 0.5 MG TABLET PO PRN (09:59)
[2018-06-29] MEDS: ACETAMINOPHEN 325MG TABLET PO PRN (09:59)
[2018-06-29] MEDS ORDERED: FUROSEMIDE 40MG/4ML VIAL IVP NR (11:00)
[2018-06-29] MEDS ORDERED: TERBUTALINE SULFATE 2.5MG TABLET PO SCH (14:00)
[2018-06-29] MEDS ORDERED: ALPR1TAB2 MT (16:30)
[2018-06-29] MEDS ORDERED: LEVO500T2 PO (16:31)
== END 2018-06-29 17:30 | disposition home or self-care (01) | DRG 720 ==
LOC: EDBEDREQ 23:06 → EDBEDREQTM 23:06 → EDBEDREQSVC 23:06 → ENRESERV 23:17 → ER 23:31 → 6WST 06-19 00:16 → 5EST 06-26 15:49
PROVIDERS: ADMIT Internal Medicine Nephrology; ATTEND Internal Medicine Nephrology
PROC: 5A09357 Assistance with Respiratory Ventilation, Less than 24 Consecutive Hours, Continuous Positive Airway Pressure (ICD-10-PCS; principal; 2018-06-26)
PROC: 5A09357 Assistance with Respiratory Ventilation, Less than 24 Consecutive Hours, Continuous Positive Airway Pressure (ICD-10-PCS; 2018-06-27)
PROC: 5A09357 Assistance with Respiratory Ventilation, Less than 24 Consecutive Hours, Continuous Positive Airway Pressure (ICD-10-PCS; 2018-06-28)
PROC: 5A09357 Assistance with Respiratory Ventilation, Less than 24 Consecutive Hours, Continuous Positive Airway Pressure (ICD-10-PCS; 2018-06-29)
DX: A41.9 Sepsis, unspecified organism (principal); J96.00 Acute respiratory failure, unspecified whether with hypoxia or hypercapnia; J18.9 Pneumonia, unspecified organism; E66.01 Morbid (severe) obesity due to excess calories; J45.41 Moderate persistent asthma with (acute) exacerbation; E83.39 Other disorders of phosphorus metabolism; E87.1 Hypo-osmolality and hyponatremia; J20.9 Acute bronchitis, unspecified; N39.0 Urinary tract infection, site not specified; F41.9 Anxiety disorder, unspecified; F12.90 Cannabis use, unspecified, uncomplicated; F17.200 Nicotine dependence, unspecified, uncomplicated; G89.29 Other chronic pain; K52.9 Noninfective gastroenteritis and colitis, unspecified; K59.00 Constipation, unspecified; B97.89 Other viral agents as the cause of diseases classified elsewhere; Z68.41 Body mass index [BMI] 40.0-44.9, adult; Z88.2 Allergy status to sulfonamides; Z91.19 Patient's noncompliance with other medical treatment and regimen; Z88.5 Allergy status to narcotic agent; Z88.8 Allergy status to other drugs, medicaments and biological substances; Z88.1 Allergy status to other antibiotic agents
CPT/HCPCS: 36415; 36600; 71045; 71275; 80048; 80076; 80305; 82270; 82375; 82533; 82550; 82805; 83605; 83735; 84100; 84484; 85379; 86713; 86738; 87070; 87493; 87804; 93005; 93306; 93970; 94640; 94660; 96360; 96361; 97116; 97162; 97530; 99285; C1893; J0456; J0696; J1650; J1940; J1956; J2060; J2405; J2920; J2930; J3490; J7030; J7060; J7131; J7512; J7608; J7611; J7620; Q9967; A4315

== ENCOUNTER 2022-07-06 11:37 | Emergency (ER) | payer MEDICAID ==
[~2022-07-06] VITALS: Ht 167.6 cm; Wt 141.0 kg
[~2022-07-06 11:37] MED LIST: ALBU05 NEB; ALPR1TAB2 MT; CYCL10TA21 PO; GABA800T97 MT; LEVO500T2 PO; METH-773 MT; MOME13HF2 INH; MONT-39 MT; NAPR375T5 PO; TIZA4CAP6 MT
[2022-07-06 11:48] VITALS: BP 102/75
[2022-07-06 17:22] LABS: BASOPHILS % 0.9 % (0.0-2.0); HEMATOCRIT. 40.8 % (36.0-48.0); HEMOGLOBIN. 13.8 g/dL (12.0-16.0); LYMPHOCYTES % 38.2 % (20.0-50.0); MEAN CORPUSCULAR VOLUME 91.6 fL (81.0-99.0); MEAN PLATELET VOLUME 7.8 fl (7.4-10.4); MONOCYTES % 9.1 % (2.0-8.0); NEUTROPHILS % 50.8 % (40.0-76.0); PLATELET 317 x1000/uL (130-400); RED BLOOD CELL COUNT 4.45 mill/uL (4.2-5.4); RED CELL DISTRIBUTION WIDTH 14.2 % (11.6-14.6)
[2022-07-06 17:29] LABS: CHLORIDE 102 mEq/L (98-107)
== END 2022-07-07 02:20 | disposition home or self-care (01) ==
LOC: ER 11:37
DX: R07.89 Other chest pain (principal); R60.0 Localized edema; J45.909 Unspecified asthma, uncomplicated; M54.30 Sciatica, unspecified side; G62.9 Polyneuropathy, unspecified; Z88.1 Allergy status to other antibiotic agents; Z88.2 Allergy status to sulfonamides; Z88.6 Allergy status to analgesic agent
CPT/HCPCS: 36415; 71045; 80053; 84484; 85025; 85379; 99284